=== PATIENT | male | born 1945 | race Caucasian/White ===

== ENCOUNTER 2019-06-26 07:10 | Outpatient (CLI) | payer MEDICARE, SELFPAY ==
[2019-06-26 07:26] LABS: Basophils Absolute Auto 0.06 K/mm3 (0.00-0.10); Eosinophils Absolute Auto 0.22 K/mm3 (0.02-0.50); Eosinophils Percent Auto 3.7 % (1.0-6.0); Hematocrit 40.9 % (37.0-46.0); Hemoglobin 13.9 g/dL (12.4-15.3); Immature Granulocyte Absolute 0.01 K/mm3 (0.00-0.00); Immature Granulocyte Percent A 0.2 % (0.0-0.0); Lymphocytes Absolute Auto 1.12 K/mm3 (1.10-4.50); Lymphocytes Percent Auto 18.8 % (18.0-42.0); Mean Corpuscular Hemoglobin 31.3 pg (27.0-31.0); Mean Corpuscular Volume 92.1 fL (78.0-102.0); Mean Platelet Volume 8.9 fl (8.7-11.0); Monocytes Absolute Auto 0.69 K/mm3 (0.10-0.90); Monocytes Percent Auto 11.6 % (2.0-11.0); Neutrophils Absolute Auto 3.9 K/mm3 (1.7-7.2); Neutrophils Percent Auto 64.7 % (50.0-70.0); Platelet Count Result 206 K/mm3 (150-420); Red Blood Count 4.44 M/mm3 (4.70-6.10); Red Cell Distribution Width 12.4 % (11.6-14.4)
[2019-06-26 07:43] LABS: Hemoglobin A1C 5.8 % (<5.7)
[2019-06-26 08:40] LABS: Alanine Aminotransferase 14 U/L (16-63); Albumin Level 3.7 g/dL (3.4-5.0); Alkaline Phosphatase 112 U/L (46-116); Anion Gap 9.5 mmol/L (7-16); Aspartate Amino Transferase 14 U/L (15-37); Bilirubin,Total 0.6 mg/dL (0.00-1.00); Blood Urea Nitrogen 18 mg/dL (7-18); Calcium 8.8 mg/dL (8.5-10.1); Carbon Dioxide 31 mmol/L (21-32); Chloride 105 mmol/L (98-108); Cholesterol 219 mg/dL (0-200); Estimated Glomerular Filt Rate > 60; Folic Acid 15.2 ng/mL (8.6->20); Glucose 109 mg/dL (70-99); HDL Direct 46 mg/dL (40-60); LDL Cholesterol Calculated 165 mg/dL (<130); Osmolality Calculated 294 mOsm/kg (285-295); Potassium 4.5 mmol/L (3.5-5.1); Sodium 141 mmol/L (136-145); Thyroid Stimulating Hormone 0.76 uIU/mL (0.36-3.74); Total Protein 6.5 g/dL (6.4-8.2); Triglycerides 42 mg/dL (0-150); Vitamin B12 270 pg/mL (193-986)
[2019-06-29 11:10] LABS: Metanephrine, Free 77 pg/mL (<=57); Normetanephrine, Free 187 pg/mL (<=148); Total, Free (MN + NMN) 264 pg/mL (<=205)
== END 2019-06-26 07:11 | disposition home or self-care (01) ==
PROVIDERS: PCP Internal Medicine; Visit Provider Internal Medicine
DX: R53.83 Other fatigue (principal); I10 Essential (primary) hypertension; R73.9 Hyperglycemia, unspecified; E78.00 Pure hypercholesterolemia, unspecified
CPT/HCPCS: 36415; 80053; 80061; 82607; 82746; 83036; 83735; 83835; 84443; 85025

== ENCOUNTER 2019-12-17 10:26 | Outpatient (CLI) | payer MEDICARE, SELFPAY ==
--- NOTE | ~2019-12-17 | CT_ITS ---
EXAMINATION: CT brain wo/w con DATE: 12/17/2019 11:11 INDICATION: Head injury. Amnesia. TECHNIQUE: Computed tomography (CT) of the head was performed without intravenous contrast. The mA wa s adjusted according to patient size. Iterative reconstruction technique was employed. Exam dose: 13 62.00 mGy-cm total exam DLP. COMPARISON: 04/03/2012 CT brain FINDINGS: Bilateral vertebral artery, basilar artery and bilateral carotid siphon and supraclinoid in ternal carotid artery calcifications. There is nonspecific diminished attenuation of the cerebral white matter, likely due to chronic small vessel ischemic changes. There is chronic lacunar infarct of the left basal ganglia. No intracranial mass lesion or hemorrhage, midline shift or mass effect or recent cerebrovascular acc ident is evident. No midline shift or mass effects. No subdural or epidural hematoma. No fracture or bone destruction of the cranial vault. The mastoid air cells and included paranasal sinuses are normally developed and aerated. IMPRESSION: Cerebral atherosclerosis and chronic small vessel ischemic changes of the cerebral white matter Chronic lacunar infarct of left basal ganglia No acute intracranial finding or skull fracture Reviewed, dictated and finalized at [facility]. Reviewed, dictated and finalized at [facility].
[2019-12-17 11:02] LABS: Estimated Glomerular Filt Rate > 60
== END 2019-12-17 10:27 | disposition home or self-care (01) ==
PROVIDERS: PCP Internal Medicine; Visit Provider Internal Medicine
DX: S09.90XA Unspecified injury of head, initial encounter (principal); R41.3 Other amnesia; X58.XXXA Exposure to other specified factors, initial encounter; I67.2 Cerebral atherosclerosis
CPT/HCPCS: 70470; Q9967

== ENCOUNTER 2019-12-24 10:31 | Outpatient (CLI) | payer MEDICARE, SELFPAY ==
--- NOTE | ~2019-12-24 | US_ITS ---
EXAMINATION: US carotid duplex BI DATE: 12/24/2019 11:34 INDICATION: Syncope. Cerebral infarction. TECHNIQUE: Grayscale, color Doppler, and pulsed Doppler images of the cervical carotid arteries were obtained. The degree of vessel stenosis is placed in one of the following categories: normal, <50%, 5 0-69%, >=70% but less than near-occlusion, near-occlusion, or total occlusion. Note that percent sten osis relative to normal distal artery lumen diameter is indirectly measured from velocity measurement s as described by Zay, et al. Radiology 2003; 229:340-346. Notes: Normal: Peak systolic velocity <125 centimeters/sec and no plaque <50%. Peak systolic velocity <125 ( EDV <40; ICA/CCA PSV ratio <2.0; used these factors only a tandem lesions or low cardiac output or co ntralateral disease) 50-69 %: PSV 125-230 (EDV 40-100; ratio 2-4) >= 70% but less than near occlusion: PSV greater than 230 (EDV > 100; ratio> 4.0) Near Occlusion: PSV that is variable; markedly narrowed lumen Occlusion: Absent flow on color/spectral Doppler and no lumen on gallegos scale. COMPARISON: None. FINDINGS: RIGHT: The right common carotid artery (CCA) peak systolic velocity (PSV) is 73 cm/s. The right internal car otid artery (ICA) PSV is 82 cm/s. The right ICA end-diastolic velocity (EDV) is 25 cm/s. The right IC A/CCA PSV ratio is 1.1. The external carotid artery (ECA) PSV is 65 cm/s. There is antegrade flow in the right vertebral artery. LEFT: The left CCA PSV is 83 cm/s. The left ICA PSV is 100 cm/s. The left ICA EDV is 34 cm/s. The left ICA/ CCA PSV ratio is 1.2. The ECA PSV is 52 cm/s. There is antegrade flow in the left vertebral artery. IMPRESSION: 1. Less than 50% stenosis in the right internal carotid artery by sonographic criteria. 2. Less than 50% stenosis in the left internal carotid artery by sonographic criteria. Reviewed, dictated and finalized at [facility]. IMPRESSION: 1. Less than 50% stenosis in the right internal carotid artery by sonographic yakov nunn. 2. Less than 50% stenosis in the left internal carotid artery by sonographic ac galdamez.
== END 2019-12-24 10:32 | disposition home or self-care (01) ==
PROVIDERS: PCP Internal Medicine; Visit Provider Internal Medicine
DX: I63.81 Other cerebral infarction due to occlusion or stenosis of small artery (principal); I65.23 Occlusion and stenosis of bilateral carotid arteries
CPT/HCPCS: 93880

== ENCOUNTER 2020-01-12 09:00 | Outpatient (CLI) | payer MEDICARE, SELFPAY ==
[2020-01-12 09:14] LABS: Basophils Absolute Auto 0.09 K/mm3 (0.00-0.10); Basophils Percent Auto 1.5 % (0.0-1.0); Eosinophils Absolute Auto 0.19 K/mm3 (0.02-0.50); Eosinophils Percent Auto 3.2 % (1.0-6.0); Hematocrit 42.6 % (37.0-46.0); Hemoglobin 14.5 g/dL (12.4-15.3); Immature Granulocyte Absolute 0.03 K/mm3 (0.00-0.00); Immature Granulocyte Percent A 0.5 % (0.0-0.0); Lymphocytes Percent Auto 21.7 % (18.0-42.0); Mean Corpuscular Hemoglobin 31.4 pg (27.0-31.0); Mean Corpuscular Volume 92.2 fL (78.0-102.0); Monocytes Absolute Auto 0.57 K/mm3 (0.10-0.90); Monocytes Percent Auto 9.5 % (2.0-11.0); Neutrophils Absolute Auto 3.8 K/mm3 (1.7-7.2); Neutrophils Percent Auto 63.6 % (50.0-70.0); Platelet Count Result 239 K/mm3 (150-420); Red Blood Count 4.62 M/mm3 (4.70-6.10); Red Cell Distribution Width 12.6 % (11.6-14.4)
[2020-01-12 09:34] LABS: Hemoglobin A1C 5.2 % (<5.7)
[2020-01-12 10:17] LABS: Alanine Aminotransferase 17 U/L (16-63); Albumin Level 3.8 g/dL (3.4-5.0); Alkaline Phosphatase 133 U/L (46-116); Anion Gap 9 mmol/L (8-16); Aspartate Amino Transferase 10 U/L (15-37); Bilirubin,Total 0.7 mg/dL (0.00-1.00); Blood Urea Nitrogen 16 mg/dL (7-18); Calcium 8.8 mg/dL (8.5-10.1); Carbon Dioxide 28 mmol/L (21-32); Chloride 104 mmol/L (98-108); Cholesterol 224 mg/dL (0-200); Estimated Glomerular Filt Rate > 60; Glucose 103 mg/dL (70-99); HDL Direct 50 mg/dL (40-60); LDL Cholesterol Calculated 162 mg/dL (<130); Osmolality Calculated 293 mOsm/kg (285-295); Potassium 4.6 mmol/L (3.5-5.1); Sodium 141 mmol/L (136-145); Thyroid Stimulating Hormone 0.39 uIU/mL (0.36-3.74); Total Protein 6.8 g/dL (6.4-8.2); Triglycerides 59 mg/dL (0-150)
== END 2020-01-12 09:01 | disposition home or self-care (01) ==
LOC: CHSLAB 09:01
PROVIDERS: PCP Internal Medicine; Visit Provider Internal Medicine
DX: R53.83 Other fatigue (principal); E78.49 Other hyperlipidemia; R73.9 Hyperglycemia, unspecified
CPT/HCPCS: 36415; 80053; 80061; 83036; 84443; 85025

== ENCOUNTER 2020-07-14 07:10 | Outpatient (CLI) | payer MEDICARE, SELFPAY ==
[2020-07-14 07:27] LABS: Basophils Absolute Auto 0.07 K/mm3 (0.00-0.10); Basophils Percent Auto 1.1 % (0.0-1.0); Eosinophils Absolute Auto 0.17 K/mm3 (0.02-0.50); Eosinophils Percent Auto 2.7 % (1.0-6.0); Immature Granulocyte Absolute 0.03 K/mm3 (0.00-0.00); Immature Granulocyte Percent A 0.5 % (0.0-0.0); Lymphocytes Absolute Auto 1.29 K/mm3 (1.10-4.50); Lymphocytes Percent Auto 20.6 % (18.0-42.0); Mean Corpuscular HGB Conc 33.3 g/dL (32.0-36.0); Mean Corpuscular Volume 92.9 fL (78.0-102.0); Mean Platelet Volume 9.1 fl (8.7-11.0); Monocytes Absolute Auto 0.65 K/mm3 (0.10-0.90); Monocytes Percent Auto 10.4 % (2.0-11.0); Neutrophils Absolute Auto 4.1 K/mm3 (1.7-7.2); Neutrophils Percent Auto 64.7 % (50.0-70.0); Platelet Count Result 216 K/mm3 (150-420); Red Blood Count 4.52 M/mm3 (4.70-6.10); Red Cell Distribution Width 12.6 % (11.6-14.4); White Blood Count 6.3 K/mm3 (4.8-10.8)
[2020-07-14 07:51] LABS: Hemoglobin A1C 5.6 % (<5.7)
[2020-07-14 09:02] LABS: Cholesterol 207 mg/dL (0-200); Folic Acid 11.8 ng/mL (8.6->20); HDL Direct 42 mg/dL (40-60); LDL Cholesterol Calculated 151 mg/dL (<130); Thyroid Stimulating Hormone 0.69 uIU/mL (0.36-3.74); Triglycerides 71 mg/dL (0-150); Vitamin B12 246 pg/mL (193-986)
[2020-07-20 05:29] LABS: Creatinine, Random Urine 86 mg/dL (20-320); Metanephrine, Total Urine 532 mcg/g cr (149-603); Metanephrine, Urine 195 mcg/g cr (21-153); Normetanephrine, Urine 337 mcg/g cr (108-524)
== END 2020-07-14 07:11 | disposition home or self-care (01) ==
LOC: CHSLAB 07:14
PROVIDERS: PCP Internal Medicine; Visit Provider Internal Medicine
DX: E78.5 Hyperlipidemia, unspecified (principal); R53.83 Other fatigue; R73.9 Hyperglycemia, unspecified; I10 Essential (primary) hypertension
CPT/HCPCS: 36415; 80061; 82570; 82607; 82746; 83036; 83835; 84443; 85025

== ENCOUNTER 2020-08-31 20:25 | Outpatient (CLI) | payer MEDICARE, SELFPAY | END 2020-08-31 20:26 | disposition home or self-care (01) | PROVIDERS: PCP Internal Medicine; Visit Provider Internal Medicine | DX: R19.7 Diarrhea, unspecified (principal) | CPT/HCPCS: 87045; 87046; 87324; 87427; 89055 ==

== ENCOUNTER 2021-07-19 07:20 | Outpatient (CLI) | payer MEDICARE, SELFPAY ==
[2021-07-19 07:34] LABS: Hematocrit 41.8 % (37.0-46.0); Hemoglobin 13.8 g/dL (12.4-15.3); Mean Corpuscular Hemoglobin 30.9 pg (27.0-31.0); Mean Corpuscular Volume 93.5 fL (78.0-102.0); Mean Platelet Volume 8.8 fl (8.7-11.0); Platelet Count Result 226 K/mm3 (150-420); Red Blood Count 4.47 M/mm3 (4.70-6.10); Red Cell Distribution Width 12.5 % (11.6-14.4); White Blood Count 5.6 K/mm3 (4.8-10.8)
[2021-07-19 09:06] LABS: Alanine Aminotransferase 7 U/L (16-63); Albumin Level 3.4 g/dL (3.4-5.0); Alkaline Phosphatase 128 U/L (46-116); Anion Gap 6 mmol/L (8-16); Aspartate Amino Transferase 22 U/L (15-37); Bilirubin,Total 0.6 mg/dL (0.00-1.00); Blood Urea Nitrogen 20 mg/dL (7-18); Calcium 8.8 mg/dL (8.5-10.1); Carbon Dioxide 30 mmol/L (21-32); Chloride 103 mmol/L (98-108); Cholesterol 220 mg/dL (0-200); Estimated Glomerular Filt Rate > 60; Glucose 104 mg/dL (70-99); HDL Direct 46 mg/dL (40-60); LDL Cholesterol Calculated 163 mg/dL (<130); Osmolality Calculated 290 mOsm/kg (285-295); Potassium 4.5 mmol/L (3.5-5.1); Sodium 139 mmol/L (136-145); Thyroid Stimulating Hormone 0.71 uIU/mL (0.36-3.74); Total Protein 6.2 g/dL (6.4-8.2); Triglycerides 54 mg/dL (0-150); Vitamin B12 244 pg/mL (193-986)
== END 2021-07-19 07:21 | disposition home or self-care (01) ==
LOC: CHSLAB 07:23
PROVIDERS: PCP Internal Medicine; Visit Provider Physician Assistant
DX: E78.5 Hyperlipidemia, unspecified (principal); R53.83 Other fatigue
CPT/HCPCS: 36415; 80053; 80061; 82607; 82746; 84443; 85027

== ENCOUNTER 2022-07-17 07:09 | Outpatient (CLI) | payer MEDICARE, SELFPAY ==
[2022-07-17 07:26] LABS: Basophils Absolute Auto 0.07 K/mm3 (0.00-0.10); Basophils Percent Auto 1.4 % (0.0-1.0); Eosinophils Absolute Auto 0.23 K/mm3 (0.02-0.50); Eosinophils Percent Auto 4.4 % (1.0-6.0); Hematocrit 40.7 % (37.0-46.0); Hemoglobin 13.4 g/dL (12.4-15.3); Immature Granulocyte Absolute 0.02 K/mm3 (0.00-0.00); Immature Granulocyte Percent A 0.4 % (0.0-0.0); Lymphocytes Absolute Auto 1.23 K/mm3 (1.10-4.50); Lymphocytes Percent Auto 23.7 % (18.0-42.0); Mean Corpuscular HGB Conc 32.9 g/dL (32.0-36.0); Mean Corpuscular Hemoglobin 30.9 pg (27.0-31.0); Mean Corpuscular Volume 93.8 fL (78.0-102.0); Monocytes Absolute Auto 0.59 K/mm3 (0.10-0.90); Monocytes Percent Auto 11.4 % (2.0-11.0); Neutrophils Percent Auto 58.7 % (50.0-70.0); Platelet Count Result 209 K/mm3 (150-420); Red Blood Count 4.34 M/mm3 (4.70-6.10); Red Cell Distribution Width 12.7 % (11.6-14.4); White Blood Count 5.2 K/mm3 (4.8-10.8)
[2022-07-17 08:57] LABS: Alanine Aminotransferase 17 U/L (16-63); Albumin Level 3.4 g/dL (3.4-5.0); Alkaline Phosphatase 114 U/L (46-116); Anion Gap 6 mmol/L (8-16); Aspartate Amino Transferase 13 U/L (15-37); Bilirubin,Total 0.6 mg/dL (0.00-1.00); Blood Urea Nitrogen 18 mg/dL (7-18); Calcium 8.6 mg/dL (8.5-10.1); Carbon Dioxide 31 mmol/L (21-32); Chloride 105 mmol/L (98-108); Cholesterol 209 mg/dL (0-200); Estimated Glomerular Filt Rate > 60; Folic Acid 14.3 ng/mL (8.6->20); Glucose 105 mg/dL (70-99); HDL Direct 42 mg/dL (40-60); LDL Cholesterol Calculated 155 mg/dL (<130); Osmolality Calculated 295 mOsm/kg (285-295); Potassium 4.1 mmol/L (3.5-5.1); Sodium 142 mmol/L (136-145); Thyroid Stimulating Hormone 0.68 uIU/mL (0.36-3.74); Total Protein 6.4 g/dL (6.4-8.2); Triglycerides 61 mg/dL (0-150); Vitamin B12 215 pg/mL (193-986)
== END 2022-07-17 07:10 | disposition home or self-care (01) ==
LOC: CHSLAB 07:14
PROVIDERS: PCP Internal Medicine; Visit Provider Internal Medicine
DX: E78.5 Hyperlipidemia, unspecified (principal); R53.83 Other fatigue; R73.9 Hyperglycemia, unspecified; R74.8 Abnormal levels of other serum enzymes
CPT/HCPCS: 36415; 80053; 80061; 82607; 82746; 84443; 85025

== ENCOUNTER 2024-03-20 08:43 | Outpatient (CLI) | payer MEDICARE, SELFPAY ==
[2024-03-20 08:49] LABS: Hematocrit 39.5 % (37.0-46.0); Hemoglobin 13.3 g/dL (12.4-15.3); Mean Corpuscular HGB Conc 33.7 g/dL (32-36); Mean Corpuscular Hemoglobin 31.1 pg (27.0-31.0); Mean Corpuscular Volume 92.5 fL (78.0-102.0); Mean Platelet Volume 9.6 fl (8.7-11.0); Platelet Count Result 236 K/mm3 (150-420); Red Blood Count 4.27 M/mm3 (4.70-6.10); Red Cell Distribution Width 12.9 % (11.6-14.4); White Blood Count 6.6 K/mm3 (4.8-10.8)
[2024-03-20 08:51] LABS: Add Urine Microscopic? NO; Appearance Urine Clear (Clear); Bilirubin Urine Negative (Negative); Blood Urine Negative (Negative); Color Urine Yellow (Yellow); Glucose Urine UA Negative (Negative); Ketones Urine Trace (Negative); Leukocyte Esterase Ur Negative (Negative); Nitrate Urine Negative (Negative); Protein Urine Negative (Negative); Urobilinogen Urine 0.2 mg/dL (0.2-1.0)
[2024-03-20 09:25] LABS: Alanine Aminotransferase 19 U/L (16-63); Albumin Level 3.6 g/dL (3.4-5.0); Alkaline Phosphatase 127 U/L (46-116); Anion Gap 6 mmol/L (4-12); Aspartate Amino Transferase 13 U/L (15-37); Bilirubin,Total 0.6 mg/dL (0.00-1.00); Blood Urea Nitrogen 30 mg/dL (7-18); Calcium 9.3 mg/dL (8.5-10.1); Carbon Dioxide 30 mmol/L (21-32); Chloride 104 mmol/L (98-108); Cholesterol 233 mg/dL (0-200); Estimated Glomerular Filt Rate > 60; Glucose 111 mg/dL (70-99); HDL Direct 47 mg/dL (40-60); LDL Cholesterol Calculated 177 mg/dL (<130); Osmolality Calculated 297 mOsm/kg (285-295); Potassium 5.1 mmol/L (3.5-5.1); Prostate Specific Antigen < 0.1 ng/mL (< OR = 4.0); Sodium 140 mmol/L (136-145); Thyroid Stimulating Hormone 0.51 uIU/mL (0.36-3.74); Total Protein 6.5 g/dL (6.4-8.2); Triglycerides 45 mg/dL (0-150)
[2024-03-20 14:47] LABS: Hemoglobin A1C 5.5 % (<5.7)
== END 2024-03-20 08:44 | disposition home or self-care (01) ==
PROVIDERS: PCP Internal Medicine; Visit Provider Internal Medicine
DX: R73.02 Impaired glucose tolerance (oral) (principal); I10 Essential (primary) hypertension; C61 Malignant neoplasm of prostate
CPT/HCPCS: 36415; 80053; 80061; 81003; 83036; 84153; 84443; 85027

== ENCOUNTER 2024-10-01 07:29 | Outpatient (CLI) | payer MEDICARE, SELFPAY ==
[2024-10-01 08:11] LABS: Alanine Aminotransferase 10 U/L (6-50); Albumin Level 3.6 g/dL (3.5-5.1); Alkaline Phosphatase 100 U/L (38-126); Anion Gap 3 mmol/L (4-12); Aspartate Amino Transferase 18 U/L (17-59); Bilirubin,Total 0.8 mg/dL (0.2-1.3); Blood Urea Nitrogen 22 mg/dL (9-20); Carbon Dioxide 29 mmol/L (22-30); Chloride 106 mmol/L (98-107); Estimated Glomerular Filt Rate > 60; Glucose 106 mg/dL (65-110); Osmolality Calculated 289 mOsm/kg (285-295); Potassium 4.6 mmol/L (3.4-5.0); Sodium 138 mmol/L (137-145); Total Protein 6.1 g/dL (6.3-8.2)
== END 2024-10-01 07:30 | disposition home or self-care (01) ==
LOC: CHSLAB 07:31
PROVIDERS: PCP Internal Medicine; Visit Provider Internal Medicine
DX: I10 Essential (primary) hypertension (principal)
CPT/HCPCS: 36415; 80053

== ENCOUNTER 2025-01-12 16:17 | Outpatient (CLI) | payer MEDICARE, SELFPAY ==
--- NOTE | ~2025-01-12 | XR_ITS ---
EXAMINATION: XR hip BI wo pelvis, 01/12/2025 16:30 CDT HISTORY: BL hip and knee pain COMPARISON: No comparisons available. Findings: No acute fracture or malalignment. Severe degenerative changes Soft tissues unremarkable. Impression: No acute fracture or malalignment. Reviewed, dictated and finalized at location P. Impression: No acute fracture or malalignment.
--- NOTE | ~2025-01-12 | XR_ITS ---
EXAMINATION: XR knee LT 3V, 01/12/2025 16:30 CDT HISTORY: BL hip and knee pain COMPARISON: No comparisons available. Findings: Fixation of the proximal tibia with sequelae of remote trauma, no acute fracture is identified Severe tricompartmental degenerative changes. Soft tissues unremarkable. Impression: No acute fracture or malalignment. Reviewed, dictated and finalized at location P. Impression: No acute fracture or malalignment.
--- NOTE | ~2025-01-12 | XR_ITS ---
EXAMINATION: XR knee RT 3V, 01/12/2025 16:30 CDT HISTORY: BL hip and knee pain COMPARISON: No comparisons available. Findings: No acute fracture or malalignment. Moderate tricompartmental degenerative changes Soft tissues unremarkable. Impression: No acute fracture or malalignment. Reviewed, dictated and finalized at location P. Impression: No acute fracture or malalignment.
--- OUTSIDE RECORDS SUMMARY | 2025-01-12 16:43 | XMS_ITS | Clinical Summary ---
Author Organization [facility] [employer] Address [address] 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 This disclosure is being madepursuant to the Care Everywhere program and may not contain all information available regarding this patient. Last updated 17.[facility] [employer] Allergies No known active allergies Medications * Be aware that medications may not be up to date on this document. Alwaysverify current medications with the patient. ramipril (ALTACE) 10 MG capsule Take 10 mg by mouth once daily. Active aspirin 81 MG chew tablet Take 81 mg by mouth once daily. Active multivitamin daily (THERAGRAN) tablet Take 1 Tab by mouth daily with food. 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 Gender Identity Not on file Sexual Orientation Not on file Last Filed Vital Signs Vital Sign Reading Time Taken Comments Blood Pressure 121/79 09/11/2011 1:24 PM CDT Pulse 68 09/11/2011 1:24 PM CDT Temperature - - Respiratory Rate 16 09/11/2011 12:31 PM CDT Oxygen Saturation 96% 09/11/2011 1:12 PM CDT Inhaled Oxygen Concentration - - Weight 95.3 kg (210 lb) 09/11/2011 10:38 AM CDT Height 188 cm (6' 2) 09/11/2011 10:38 AM CDT Body Mass Index 26.96 09/11/2011 10:38 AM CDT Plan of Treatment Health Maintenance Due Date Last Done Comments HEPATITIS C SCREENING 05/14/1963 DTAP/TDAP/TD VACCINES (1 - Tdap) 1965 PNEUMOCOCCAL VACCINE 50+ (1 of 1 - PCV) 1996 ZOSTER VACCINE (1 of 2) 1996 Respiratory Syncytial Virus (RSV) Vaccine Pt: or over 60 yrs (1 - 1-dose 75+ series) 2021 DEPRESSION SCREENING 04/08/2024 COVID-19 VACCINE ( - 2023-2 5 season) 2024 INFLUENZA VACCINE (#1) 2024 HEPATITIS B VACCINE Aged Out No longe r eligible based on patient's age to complete this topic HIB VACCINE Aged Out No longer eligi ble based on patient's age to complete this topic HPV VACCINE Aged Out No longer eligi ble based on patient's age to complete this topic MENINGOCOCCAL (Group B) VACC INE SHARED DECISION-MAKING Aged Out No longer eligibl e based on patient's age to complete this topic MENINGOCOCCAL GROUPS A/C/Y/W VACCINE Aged Out No longer eligible b ased on patient's age to complete this topic
--- OUTSIDE RECORDS SUMMARY | 2025-01-12 16:43 | XMS_ITS | Clinical Summary ---
Author Organization [facility] Address [address] [place] [address] Phone Care Team Providers Care Anesthesiologist Physician Name Role Phone Earnest Hanley MD Primary Care Provider [phone] Allergies No known active allergies Medications aspirin 81 mg chewable tablet Take 1 tablet (81 mg total) by mouth once Active carvedilol (COREG) 25 mg tablet Take 1 tablet (25 mg total) by mouth 2 (two) times a day 2 8 Active ramipril (ALTACE) 10 mg capsule Take 1 capsule (10 mg total) by mouth once Active pantoprazole DR (PROTONIX) 40 mg EC tablet Take 1 tablet (40 mg total) by mouth daily 3 8 Active amLODIPine (NORVASC) 5 mg tablet 0 Active diphenoxylate-a tropine (LOMOTIL) 2.5-0.025 mg per tablet 1 Active latanoprost (XALATAN) 0.005 % ophthalmic solution ADMINISTER 1 DROP INTO THE RIGHT EYE NIGHTLY 7.5 mL 3 3 Active dorzolamide-cleo oloL (COSOPT) 22.3-6.8 mg/mL ophthalmic solution INSTILL 1 DROP INTO RIGHT EYE TWICE A DAY 20 mL 3 4 Active Active Problems Problem Noted Date Diagnosed Date 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 Pt with history of retinal detachment (RD) right eye (OD) with Rapte years ago. Also note some intraretinal edema although potential not good left eye (OS). Will ok reeval by Eamon next Assessment & Plan (01/07/2024 11:46 AM CDT): Noted in past, but no recent mac OCT tested recently. Will plan mac OCT with next OCT testing of nerve. Assessment & Plan (10/16/2022 2:19 PM CDT): Dry macular degenerative changes noted but appears stable without any evidence of PED or CRNMV both eyes (OU). Dry chronic changes appear stable. Recommend checking Amsler grid regularly with each eye separately and contacting us if there are any significant changes. Recommend no smoking and discussed vitamin supplementation. Assessment & Plan (05/28/2022 4:50 PM FLOWERS SALESPERSON): Areds/amsler Pseudophakia of right eye 09/26/2021 Overview (09/26/2021): 08/14/12- phaco/ intraocular lens (IOL) right eye (OD)- LMT- ZCBOO +16.5D , aim - 1.50 Assessment & Plan (07/07/2024 9:57 AM CDT): 08/14/12- phaco/ intraocular lens (IOL) right eye (OD)- LMT- ZCBOO +16.5D , aim - 1.50 Assessment & Plan (01/07/2024 11:46 AM CDT): 08/14/12- phaco/ intraocular lens (IOL) right eye (OD)- LMT- ZCBOO +16.5D , aim - 1.50 PCO right eye (OD) not vis sig Assessment & Plan (10/16/2022 1:19 PM CDT): 08/14/12- phaco/ intraocular lens (IOL) right eye (OD)- LMT- ZCBOO +16.5D , aim - 1.50 Assessment & Plan (09/26/2021 9:35 AM CDT): 08/14/12- phaco/ intraocular lens (IOL) right eye (OD)- LMT- ZCBOO +16.5D , aim - 1.50 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 Assessment & Plan (09/27/2020 10:03 AM CDT): Not visually significant. Assessment & Plan (03/30/2020 9:18 AM FLOWERS SALESPERSON): Not visually significant. Assessment & Plan (09/29/2019 2:53 PM CDT): Not visually significant. Assessment & Plan (09/17/2017 9:53 AM CDT): Not visually significant. Age-related nuclear cataract of left eye 018 Assessment & Plan (07/07/2024 9:57 AM CDT): Not visually significant. Do not recommend surgery at this time. Continue to monitor. Patient to call if problems with activities of daily living. Brochure offered/given. Assessment & Plan (01/07/2024 11:46 AM CDT): Not visually significant. Do not recommend surgery at this time. Continue to monitor. Patient to call if problems with activities of daily living. Assessment & Plan (10/16/2022 2:21 PM CDT): Not visually significant. Do not recommend surgery at this time. Continue to monitor. Patient to call if problems with activities of daily living. Assessment & Plan (09/26/2021 7:45 AM CDT): Not visually significant. Do not recommend surgery at this time. Continue to monitor. Patient to call if problems with activities of daily living. Brochure offered/given. Assessment & Plan (03/23/2021 8:33 AM FLOWERS SALESPERSON): Not visually significant. Do not recommend surgery at this time. Continue to monitor. Patient to call if problems with activities of daily living. Assessment & Plan (09/27/2020 8:27 AM CDT): Not visually significant. Do not recommend surgery at this time. Continue to monitor. Patient to call if problems with activities of daily living. Brochure offered/given. Assessment & Plan (03/30/2020 9:16 AM FLOWERS SALESPERSON): Not visually significant. Do not recommend surgery at this time. Continue to monitor. Patient to call if problems with activities of daily living. Assessment & Plan (09/29/2019 2:53 PM CDT): Not visually significant. Do not recommend surgery at this time. Continue to monitor. Patient to call if problems with activities of daily living. Brochure offered/given. Assessment & Plan (05/04/2019 12:06 PM FLOWERS SALESPERSON): Stable. Observe. Assessment & Plan (09/23/2018 11:10 AM CDT): Not visually significant. Do not recommend surgery at this time. Continue to monitor. Patient to call if problems with activities of daily living. Brochure offered/given. Assessment & Plan (09/17/2017 9:53 AM CDT): Not visually significant. Do not recommend surgery at this time. Continue to monitor. Patient to call if problems with activities of daily living. Brochure offered/given. Primary open angle glaucoma (POAG) of right eye, severe stage 09/16/2017 Overview (09/29/2019): Noted after retinal detachment (RD) surgeries x 2 High intraocular pressure (IOP) 29 +Fhx Assessment & Plan (11/17/2024 10:09 AM CDT): ONH pallor + APD Assessment & Plan (07/07/2024 10:58 AM CDT): Noted after retinal detachment (RD) surgeries x 2 However, High intraocular pressure (IOP) 29 +Fhx BCVA closer to 20/80 until about 2018 when vision dropped right eye (OD) due to glaucoma? Intraocular pressure (IOP) ok today right eye (OD) on cosopt bid right eye (OD) and latanoprost right eye (OD) at bedtime (qHS). Ok to continue Assessment & Plan (06/15/2024 10:08 AM CDT): -noted after RD repair x 2 with h/o high IOP OD (+)FHx -thin CCT OU -tmax 29 OD -IOP at goal 13/16mmHg on 3 classes OD only -continue cosopt bid OD and latanoprost qhs OD only -RTC as scheduled with Dr. Villa for OCT and DFE; me in 1 year HVF OS and IOP Assessment & Plan (01/07/2024 11:44 AM CDT): Noted after retinal detachment (RD) surgeries x 2 High intraocular pressure (IOP) 29 +Fhx Intraocular pressure (IOP) right eye (OD) at target with cosopt and latanoprost right eye (OD) only. ONOCT stable Assessment & Plan (06/17/2023 10:18 AM CDT): -noted after RD repair x 2 with h/o high IOP OD (+)FHx -thin CCT OU -IOP at goal 14/15.5mmHg on 3 classes OD only -continue cosopt bid OD and latanoprost qhs OD only -RTC 6 months OCT RNFL and DFE with Dr. Villa; 1 year with me HVF 24-2 OS and IOP Assessment & Plan (10/16/2022 2:20 PM CDT): Noted after retinal detachment (RD) surgeries x 2 However, High intraocular pressure (IOP) 29 +Fhx Intraocular pressure (IOP) ok today right eye (OD) on cosopt bid right eye (OD) and latanoprost right eye (OD) at bedtime (qHS). Ok to continue Assessment & Plan (06/21/2022 11:43 AM CDT): Noted after retinal detachment (RD) surgeries x 2 High intraocular pressure (IOP) 29 intraocular pressure (IOP) Normal today off meds +Fhx Suspect significant cupping due to retinal detachment (RD), but h/o intraocular pressure (IOP) to 29. Restart drops (gtts), ectropion and conj inflammation unresolved may not be due to drops (gtts) , FU LMT Assessment & Plan (05/28/2022 4:52 PM FLOWERS SALESPERSON): Noted after retinal detachment (RD) surgeries x 2 High intraocular pressure (IOP) 29 +Fhx Suspect significant cupping due to retinal detachment (RD), but h/o intraocular pressure (IOP) to 29. Stable disease. Intraocular pressure (IOP) well controlled but Follicular rxn to meds. Stop glc drops (gtts), lotemax BID right eye (OD) for 5 days then restart latan at bedtime (QHS) only Assessment & Plan (09/26/2021 7:45 AM CDT): Noted after retinal detachment (RD) surgeries x 2 High intraocular pressure (IOP) 29 +Fhx Suspect significant cupping due to retinal detachment (RD), but h/o intraocular pressure (IOP) to 29. Stable disease. Intraocular pressure (IOP) well controlled. optic nerve (ON) OCT noted. Assessment & Plan (03/23/2021 8:36 AM FLOWERS SALESPERSON): Noted after retinal detachment (RD) surgeries x 2 High intraocular pressure (IOP) 29 +Fhx Suspect significant cupping due to retinal detachment (RD), but h/o intraocular pressure (IOP) to 29. Stable disease. Intraocular pressure (IOP) well controlled. New baseline GVF right eye (OD) today Assessment & Plan (09/27/2020 8:26 AM CDT): Noted after retinal detachment (RD) surgeries x 2 High intraocular pressure (IOP) 29 +Fhx Suspect significant cupping due to retinal detachment (RD), but h/o intraocular pressure (IOP) to 29. Stable disease. Intraocular pressure (IOP) well controlled. optic nerve (ON) OCT noted. Assessment & Plan (03/30/2020 9:16 AM FLOWERS SALESPERSON): Noted after retinal detachment (RD) surgeries x 2 High intraocular pressure (IOP) 29 +Fhx Suspect significant cupping due to retinal detachment (RD), but h/o intraocular pressure (IOP) to 29. 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 Stable disease. Intraocular pressure (IOP) well controlled. optic nerve (ON) OCT noted. Assessment & Plan (05/04/2019 12:07 PM FLOWERS SALESPERSON): IOP slightly high today but likely acceptable given level of vision. CPM with cosopt bid and latanoprost qhs OD. F/u in 6 mos with LMT. Assessment & Plan (09/23/2018 11:05 AM CDT): Noted after retinal detachment (RD) surgeries x 2 Follow with JL. Suspect significant cupping due to retinal detachment (RD), but h/o intraocular pressure (IOP) to 29. Stable disease. Intraocular pressure (IOP) well controlled. Continue current medications and follow up as recommended. Assessment & Plan (09/17/2017 10:04 AM CDT): Follow with JL. Suspect significant cupping due to retinal detachment (RD), but h/o intraocular pressure (IOP) to 29. Stable disease. Intraocular pressure (IOP) well controlled. Continue current medications and follow up as recommended. 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 Left eye (OS) does not need drops Assessment & Plan (06/17/2023 10:19 AM CDT): -IOP stable today -HVF 24-2 stable and full OS today -see above for more detail; continue off gtts OS Assessment & Plan (05/28/2022 3:52 PM FLOWERS SALESPERSON): +FHx Thin CCT OU intraocular pressure (IOP) never high left eye (OS) Normal intraocular pressure (IOP) today, full Álvarez visual field (HVF) left eye (OS) CTM off meds Assessment & Plan (03/23/2021 8:37 AM FLOWERS SALESPERSON): +FHx Thin CCT OU intraocular pressure (IOP) never high left eye (OS) Normal intraocular pressure (IOP) today, full Álvarez visual field (HVF) left eye (OS) CTM off meds Assessment & Plan (09/27/2020 9:57 AM CDT): +FHx intraocular pressure (IOP) never high left eye (OS) right eye (OD) issues likely after RD Assessment & Plan (09/29/2019 2:49 PM CDT): +FHx Low suspicion for glaucoma. Ok to stay off drops. Will continue to monitor regularly with testing. Assessment & Plan (05/04/2019 12:06 PM FLOWERS SALESPERSON): No e/o progression on exam today. IOP stable. CTM off drops. 6 mos as scheduled with LMT. Assessment & Plan (09/17/2017 10:04 AM CDT): No drops left eye (OS) yet. Very low suspicion. Family history History of retinal detachment 01/03/2016 Overview (07/07/2024): H/o surgical repairs x 4OD- by Dr. Brand- release,l then endophthalmitis All 3 male siblings with h/o retina detachments Assessment & Plan (11/17/2024 10:11 AM CDT): H/o surgical repairs x 4OD- by Dr. Brand- h/o PVR, SB + PPV Assessment & Plan (07/07/2024 10:57 AM CDT): HO 4 surgical repairs right eye (OD) and endophthalmitis in [id number] natalie soares retinal detachment (RD) - (All 3 male siblings with h/o retina detachments) BCVA closer to 20/80 until about 2018 when vision dropped right eye (OD) due to glaucoma? Assessment & Plan (05/28/2022 4:50 PM FLOWERS SALESPERSON): HO 4 surgical repairs right eye (OD)- by Dr natalie soares retinal detachment (RD) - (All 3 male siblings with h/o retina detachments) Released by RA Assessment & Plan (09/26/2021 9:34 AM CDT): HO 4 surgical repairs right eye (OD)- by Dr natalie soares retinal detachment (RD) - (All 3 male siblings with h/o retina detachments) Released by RA Assessment & Plan (03/23/2021 8:13 AM FLOWERS SALESPERSON): HO [address] natalie soares retinal detachment (RD) Keep f/u with LMT as scheduled for DFE Assessment & Plan (09/27/2020 9:56 AM CDT): HO [address] natalie soares retinal detachment (RD) Keep f/u with LMT as scheduled in September for DFE Assessment & Plan (03/30/2020 9:17 AM FLOWERS SALESPERSON): HO [address] natalie soares retinal detachment (RD) Keep f/u with LMT as scheduled in September for DFE Assessment & Plan (05/04/2019 12:06 PM FLOWERS SALESPERSON): S/s of retinal detachment reviewed, advised urgent evaluation with any onset. Keep f/u with LMT as scheduled in September for DFE Assessment & Plan (09/17/2017 9:52 AM CDT): Stable. No changes or concerns. Subjective visual disturbances 09/10/2012 Hypertension 04/15/2012 Resolved Problems Problem Noted Date Diagnosed Date Resolved Date Acute follicular conjunctivitis of both eyes 3 10/16/2022 Assessment & Plan (05/28/2022 4:49 PM FLOWERS SALESPERSON): Causing secondary ectropion right eye (OD) Dc drops (gtts) for 1 week Lotemax BID right eye (OD) for 5 days Then restart Latan at bedtime (QHS) right eye (OD) only If follicles resolved, consider brim vs cosopt Ectropion of right lower eyelid 05/28/2022 01/07/2024 Assessment & Plan (10/16/2022 2:21 PM CDT): Tearing due to punctal ectropian. Not interested in surgical fix at this time. 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; Primary open angle glaucoma (POAG) of right eye, severe stage; Pseudophakia of right eye; History of retinal detachment from Last 3 Months Surgical History Surgery Date Site/Laterality Comments EYE SURGERY Right retinal detachment repair x2 CATARACT EXTRACTION Right CE/IOL Medical History Medical History Date Comments Glaucoma suspect, left PCO (posterior capsular opacification) Cataract left Primary open angle glaucoma (POAG) of right eye Family History Medical History Relation Name Comments Glaucoma Brother Hypertension Brother Retinal detachment Brother Diabetes Other Family history of diabetes mellitus - (Added by TW Conv) Retinal detachment Sister x3 sister s Amblyopia Neg Hx Blindness Neg Hx Cancer Neg Hx Cataracts Neg Hx Fuchs' dystrophy Neg Hx Macular degeneration Neg Hx Strabismus Neg Hx Stroke Neg Hx Thyroid disease Neg Hx Relation Name Status Comments Brother Other Sister Social History Tobacco Use Types Packs/Day Years Used Date Smoking Tobacco: Never Smokeless Tobacco: Never Sex and Gender Information Value Date Recorded Sex Assigned at Not on file Legal Sex Male 7:42 PM FLOWERS SALESPERSON Gender Identity Not on file Sexual Orientation Not on file Obstetrics History Plan of Treatment Health Maintenance Due Date Last Done Comments Depression Screening 1945 Fall Risk Assessment 1945 Hepatitis C Screening 1945 Hepatitis B Screening 1964 Pneumococcal vaccine 65+ (1 of 1 - PCV) 1996 Zoster Vaccine (1 of 2) 1996 Well Visit 65+ 2011 DTaP/Tdap/Td Vaccine (2 - Td or Tdap) 09/09/2022 09/09/2012 Influenza Vaccine (#1) 2024 8, 12/13/2015, 01/28/2015, Additional history exists Procedures Procedure Name Priority Date/Time Associated Diagnosis Comments OCT, RETINA - OU - BOTH EYES Routine 11/17/2024 10:05 AM CDT AMD (age-related macular degeneration), bilateral from Last 3 Months Results * OCT, Retina - OU - Both Eyes (11/17/2024 10:05 AM CDT) Anatomical Region Laterality Modality Head Optical Coherenc e Tomography Narrative 11/17/2024 10:05 AM CDT Right Eye Quality was good. Left Eye Quality was good. Notes + drusen OU Minimal remote temporal SRF OD Renaldo Brand MD PhD OPHTH TOMOGRAPHY F inal Result from Last 3 Months Insurance [employer] MEDICARE GOLD Care Teams Anesthesiologist Physician Relationship Specialty Start Date End Date Earnest Hanley MD [address] [facility] [address] [place] [address] [facility] - General 08/18/16
== END 2025-01-12 16:18 | disposition home or self-care (01) ==
PROVIDERS: PCP Internal Medicine; Visit Provider Internal Medicine
DX: M25.552 Pain in left hip (principal); M25.551 Pain in right hip; M25.561 Pain in right knee; M25.562 Pain in left knee
CPT/HCPCS: 73521; 73562

== ENCOUNTER 2025-02-11 08:52 | Outpatient (RCR) | payer MEDICARE, SELFPAY ==
--- NOTE | 2025-02-11 10:04 | OPREHPOC ---
Outpatient Therapy Plan of Care This is a Multidisciplinary Plan of Care that may contain components documented by all disciplines (PT, OT, and ST.) PT Problem 1 PT Problem #1 Knowledge Deficit PT Goal 1 Goal / Goal Update Independent and compliant with HEP. Target Visit 2 PT Problem 2 PT Problem #2 Impaired Strength PT Goal 1 Goal / Goal Update Pt to improve R hip flexion and abduction to 4+/5. Pt to improve L hip flexion and abduction to 5/5. Target Visit 12 PT Problem 3 PT Problem #3 Impaired Range of Motion PT Goal 1 Goal / Goal Update Pt to achieve 100 deg of active R hip flexion without pain. Pt to achieve neutral R hip IR without pain. Pt to reach 35 deg 90/90 hamstring length bilaterally. Target Visit 12 PT Problem 4 PT Problem #4 Impaired Functional Mobility PT Goal 1 Goal / Goal Update Pt to report 20% reduction in perceived disability on LEFS. Pt to improve Tinetti score by 3 points. Pt to demonstrate improved trendelenberg gait pattern. Target Visit 12
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
--- NOTE | 2025-04-26 16:34 | PCPTNOTE ---
Mr. Dowd attended 6 skilled PT visits addressing R hip pain due to primary osteoarthritis. Pt has not attended therapy since 03/01/25. He was contact via phone call and pt's states his doctor told him he did not have to continue PT. Pt 's chart will be discharged this date. Dr. Sarah Maxwell PT, DPT
== END 2025-03-01 20:00 | disposition home or self-care (01) ==
LOC: CHSPT 08:52
PROVIDERS: Visit Provider Physician Assistant Surgical
DX: M16.0 Bilateral primary osteoarthritis of hip (principal)
CPT/HCPCS: 97110; 97112; 97161; 97530

== ENCOUNTER 2025-03-25 13:49 | Outpatient (CLI) | payer MEDICARE, SELFPAY ==
--- NOTE | ~2025-03-25 | CT_ITS ---
EXAMINATION: CT_LERTCHWO_CT DATE: 03/25/2025 14:27 INDICATION: Right hip pain for preoperative planning TECHNIQUE: High resolution computed tomography (CT) of the bilateral hips and thighs from the pelvis through the knees was performed without intravenous contrast. Additional sagittal and coronal reconstructions were performed. Automated exposure control and iterative reconstruction technique were employed. The dose-length product was 992.74 mGy-cm. COMPARISON: None FINDINGS: L5 spondylolysis with bilateral pars interarticularis defects and 5 mm anterolisthesis on S1. Bone alignment is otherwise normal. Severe lower lumbar spondylosis. Old healed fracture of the left lateral tibial plateau which is fixed with a pair of screws. There is some residual incongruity along the ar ticular surface of the lateral tibial plateau. No acute fractures or evident osteonecrosis. Polyarticular osteoarthritis, severe at multiple lower lumbar facet joints, moderate at the bilateral sacroiliac joints and mild at the bilateral knees. There is also severe osteoarthritis at the bilateral hips with severe joint space narrowing and subarticular cystlike changes anteriorly at the right hip and posteriorly at the left hip. No hip or knee joint effusions. Infrarenal IVC filter. Ectatic infrarenal abdominal aorta measuring up to 3.3 cm in maximal diameter. Prominent diverticulosis along the sigmoid colon without adjacent from trace stranding to suggest diverticulitis. 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 No free fluid in the pelvis. No pathologically enlarged pelvic or inguinal lymphadenopathy. IMPRESSION: 1. 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 2. Severe lumbar spondylosis and L5 spondylolysis with 5 mm anterolisthesis on S1. 2. Old healed fracture deformity with screw fixation at the left lateral tibial plateau. Reviewed, dictated and finalized at location A. [facility] TRAINING SPECIALIST
--- OUTSIDE RECORDS SUMMARY | 2025-03-25 14:52 | XMS_ITS | Clinical Summary ---
Author Organization [facility] Address [address] [place] [address] Phone Care Team Providers Care Right Of Way Manager Name Role Phone Earnest Hanley MD Primary Care Provider [phone] Allergies No known active allergies Medications aspirin [...] supplementation. Assessment & Plan (05/28/2022 4:50 PM CHIEF CLINICAL OFFICER): Areds/amsler Pseudophakia of right eye 09/26/2021 Overview [...] 03/30/2020 Assessment & Plan (03/23/2021 8:35 AM CHIEF CLINICAL OFFICER): Recommend vascular technologist gentle lid scrubs daily Assessment & Plan (03/30/2020 9:19 AM CHIEF CLINICAL OFFICER): Warm compresses daily OU Right posterior capsular opacification 8 Assessment & Plan (07/07/2024 10:55 AM CDT): Likely not good visual potential OD Assessment & Plan (09/26/2021 7:46 AM CDT): Not visually significant. Assessment & Plan (09/27/2020 10:03 AM CDT): Not visually significant. Assessment & Plan (03/30/2020 9:18 AM CHIEF CLINICAL OFFICER): Not visually significant. Assessment & Plan (09/29/2019 [...] offered/given. Assessment & Plan (03/23/2021 8:33 AM CHIEF CLINICAL OFFICER): Not visually significant. Do not recommend surgery at this time. Continue to monitor. Patient to call if problems with activities of daily living. Assessment & Plan (09/27/2020 8:27 AM CDT): Not visually significant. Do not recommend surgery at this time. Continue to monitor. Patient to call if problems with activities of daily living. Brochure offered/given. Assessment & Plan (03/30/2020 9:16 AM CHIEF CLINICAL OFFICER): Not visually significant. Do not recommend surgery at this time. Continue to monitor. Patient to call if problems with activities of daily living. Assessment & Plan (09/29/2019 2:53 PM CDT): Not visually significant. Do not recommend surgery at this time. Continue to monitor. Patient to call if problems with activities of daily living. Brochure offered/given. Assessment & Plan (05/04/2019 12:06 PM CHIEF CLINICAL OFFICER): Stable. Observe. Assessment & Plan (09/23/2018 11:10 [...] LMT Assessment & Plan (05/28/2022 4:52 PM CHIEF CLINICAL OFFICER): Noted after retinal detachment (RD) surgeries x [...] noted. Assessment & Plan (03/23/2021 8:36 AM CHIEF CLINICAL OFFICER): Noted after retinal detachment (RD) surgeries x [...] noted. Assessment & Plan (03/30/2020 9:16 AM CHIEF CLINICAL OFFICER): Noted after retinal detachment (RD) surgeries x [...] noted. Assessment & Plan (05/04/2019 12:07 PM CHIEF CLINICAL OFFICER): IOP slightly high today but likely acceptable [...] OS Assessment & Plan (05/28/2022 3:52 PM CHIEF CLINICAL OFFICER): +FHx Thin CCT OU intraocular pressure (IOP) never high left eye (OS) Normal intraocular pressure (IOP) today, full Álvarez visual field (HVF) left eye (OS) CTM off meds Assessment & Plan (03/23/2021 8:37 AM CHIEF CLINICAL OFFICER): +FHx Thin CCT OU intraocular pressure (IOP) [...] testing. Assessment & Plan (05/04/2019 12:06 PM CHIEF CLINICAL OFFICER): No e/o progression on exam today. 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 Assessment & Plan (05/28/2022 4:50 PM CHIEF CLINICAL OFFICER): HO 4 surgical repairs right eye (OD)- [...] RA Assessment & Plan (03/23/2021 8:13 AM CHIEF CLINICAL OFFICER): HO [address] natalie soares retinal detachment (RD) Keep f/u with LMT as scheduled for DFE Assessment & Plan (09/27/2020 9:56 AM CDT): HO [address] natalie soares retinal detachment (RD) Keep f/u with LMT as scheduled in September for DFE Assessment & Plan (03/30/2020 9:17 AM CHIEF CLINICAL OFFICER): HO [address] natalie soares retinal detachment (RD) Keep f/u with LMT as scheduled in September for DFE Assessment & Plan (05/04/2019 12:06 PM CHIEF CLINICAL OFFICER): S/s of retinal detachment reviewed, advised urgent evaluation with any onset. Keep f/u with LMT as scheduled in September for DFE Assessment & Plan (09/17/2017 9:52 AM CDT): Stable. No changes or concerns. Subjective visual disturbances 09/10/2012 Hypertension 04/15/2012 Resolved Problems Problem Noted Date Diagnosed Date Resolved Date Acute follicular conjunctivitis of both eyes 3 10/16/2022 Assessment & Plan (05/28/2022 4:49 PM CHIEF CLINICAL OFFICER): Causing secondary ectropion right eye (OD) Dc [...] redness or pain right eye (OD), monitor Surgical History Surgery Date Site/Laterality Comments EYE [...] on file Legal Sex Male 7:42 PM CHIEF CLINICAL OFFICER Gender Identity Not on file Sexual Orientation Not on file Plan of Treatment Health Maintenance Due Date Last Done Comments Depression Screening 1945 Fall Risk Assessment 1945 Hepatitis C Screening 1945 Hepatitis B Screening 1964 Pneumococcal vaccine 65+ (1 of 1 - PCV) 1996 Zoster Vaccine (1 of 2) 1996 Well Visit 65+ 2011 DTaP/Tdap/Td Vaccine (2 - Td or Tdap) 09/09/2022 09/09/2012 Influenza Vaccine (#1) 2024 8, 12/13/2015, 01/28/2015, Additional history exists Insurance AET MEDICARE GOLD Care Teams Right Of Way Manager Relationship Specialty Start Date End Date Earnest Hanley MD [address] [facility] [address] [place], [place] [id number] PCP - General 08/18/16
--- OUTSIDE RECORDS SUMMARY | 2025-03-25 14:52 | XMS_ITS | Clinical Summary ---
Author Organization [facility] Address [address] [place] [address] Care Team Providers Care Knurling Machine Operator Name Role Phone Unavailable Primary Care Provider Unavailabl e Source Comments [facility],non-owned Affiliates and Associated Physician Practices is amultiple site organization consisting of ambulatory clinics and hospital sitesin [place], [place], [place] and [place]. This disclosure is being madepursuant to the Care Everywhere program and may not contain all information available regarding this patient. 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
--- NOTE | 2025-03-25 15:31 | ECG_ITS ---
Test Date: 2025-03-25 15:37:12 Measurements Intervals Pelican Rate: 51 P: 1 IN: 200 QRS: -34 QRSD: 117 T: 37 QT: 408 QTc: 376 Interpretive Statements SINUS BRADYCARDIA LEFT AXIS DEVIATION INCOMPLETE RIGHT BUNDLE BRANCH BLOCK BASELINE ARTIFACT- I, II, III, AVR, AVL, AVF, V1-V2 BORDERLINE ECG No previous ECG available for comparison Electronically Signed On 03-25-2025 16:02:28 PSYCHOLOGIST by Justin Calle D.O.
[2025-03-25 16:06] LABS: Hematocrit 36.2 % (42.0-52.0); Hemoglobin 12.2 g/dL (14.0-18.0)
[2025-03-25 16:15] LABS: Hemoglobin A1C 5.5 % (<5.7)
[2025-03-25 16:23] LABS: Albumin Level 3.8 g/dL (3.5-5.1); Estimated Glomerular Filt Rate 59; Glucose 108 mg/dL (65-110)
== END 2025-03-25 13:50 | disposition home or self-care (01) ==
PROVIDERS: PCP Internal Medicine; Visit Provider Orthopaedic Surgery
DX: R73.9 Hyperglycemia, unspecified (principal); Z01.818 Encounter for other preprocedural examination; I10 Essential (primary) hypertension; M16.0 Bilateral primary osteoarthritis of hip; M47.896 Other spondylosis, lumbar region
CPT/HCPCS: 36415; 73700; 82040; 82565; 82947; 83036; 85014; 85018; 93005